=== PATIENT | male | born 1970 | race Caucasian/White ===

== ENCOUNTER 2021-03-28 09:46 | Emergency (ER) | payer BC, SELFPAY ==
[2021-03-28 09:53] VITALS: BP 148/79; PULSE 71; RESP 16; TEMP 37.2; O2SAT 99
--- NOTE | 2021-03-28 10:00 | ED.SKABFB ---
HPI - Skin/Abscess/Foreign Bdy General Chief complaint: Wound/Laceration Stated complaint: dog bite on ear Time Seen by Provider: 03/28/21 10:00 Source: patient and RN notes reviewed History of Present Illness HPI narrative: Patient is a 50-year-old male who presents the urgent care with complaints of a dog bite to the left ear. Patient states that he had to put his beagle down yesterday due to cancer and every time he would touch a certain spot on his back he would lash out and bite due to pain. The vehicle was 9 years old. States that he was up-to-date on shots. Patient states that the ear has increased in swelling and pain since yesterday. No other acute complaints. No acute distress noted. Patient aware of the plan of care. Some parts of this dictation were generated by voice recognition software and may contain typographical and/or grammatical inaccuracies. Related Data Home Medications Medication Instructions Recorded Confirmed No Home Medications 03/28/21 03/28/21 Allergies Allergy/AdvReac Type Severity Reaction Status Date / Time No Known Allergies Allergy Unverified 08/18/13 18:24 Review of Systems Review of Systems: CONSTITUTIONAL: Denies fever, chills, or sweats. EYES: Denies visual changes, redness, or discharge. ENT: Denies rhinorrhea, congestion, sore throat, or otalgia. CARDIOVASCULAR: Denies chest pain, palpitations, or edema. RESPIRATORY: Denies cough or dyspnea. GASTROINTESTINAL: Denies abdominal pain, nausea, vomiting, or diarrhea. GENITOURINARY: Denies dysuria or hematuria. SKIN: Reports of swelling, pain to the left ear due to a dog bite MUSCULOSKELETAL: Denies back pain, joint pain, or myalgia. NEUROLOGIC: Denies headache, numbness, or weakness. All other systems reviewed are negative, except as documented in HPI. PMFSH Comments At the time of my signature, I reviewed and agree with the nursing past medical, surgical, social, and family history. There is no relevant family history pertinent to the patient complaint. Exam Narrative: GENERAL: This is a well-nourished, well-developed patient, in no apparent distress. HEAD: normocephalic, atraumatic. EYES: PERRL. Sclera clear/white. Vision is grossly intact. EARS: Mild to moderate erythema/edema to the external left ear with 4 superficial punctures and linear close laceration. Right external ear normal, auditory canals clear and without drainage. Hearing grossly intact. NOSE: External nose normal with no obvious nasal discharge, nares without redness, no rhinorrhea. THROAT: Mucous membranes moist NECK: Neck supple CARDIOVASCULAR: Regular rate and rhythm without murmurs, gallops, or rubs. SKIN: warm, intact with no suspicious lesions or rash, good texture and turgor. NEURO: awake, alert, and oriented to person, place and time. There were no obvious focal neurologic abnormalities. EXTREMITIES: No clubbing, cyanosis, or edema. Course Course Level of Care: Express Care Visit Vital Signs Vital signs: Vital Signs Temperature 98.9 F 03/28/21 09:53 Pulse Rate 71 03/28/21 09:53 Respiratory Rate 16 03/28/21 09:53 Blood Pressure 148/79 H 03/28/21 09:53 Pulse Oximetry 99 03/28/21 09:53 Temperature 98.9 F 03/28/21 10:05 Pulse Rate 71 03/28/21 10:05 Respiratory Rate 16 03/28/21 10:05 Blood Pressure 148/79 H 03/28/21 10:05 Pulse Oximetry 99 03/28/21 10:05 Reviewed-patient is informed that they may have pre-hypertension or hypertension based on a blood pressure reading in the department. I recommend the patient call the primary care provider listed on their discharge instructions or a physician of their choice this week to arrange follow-up for further evaluation of possible pre-hypertension or hypertension. MDM - Skin/Abscess/Foreign Bdy MDM Narrative Medical decision making narrative: Advised patient complete the oral antibiotic regimen as prescribed. May use cool compress/ice to the ear for comfort. Use Tylenol/i
[2021-03-28 10:05] VITALS: BP 148/79; PULSE 71; RESP 16; TEMP 37.2; O2SAT 99
== END 2021-03-28 10:15 | disposition home or self-care (01) ==
PROVIDERS: Emergency Provider Nurse Practitioner Family
DX: S01.332A Puncture wound without foreign body of left ear, initial encounter (principal); W54.0XXA Bitten by dog, initial encounter; M19.90 Unspecified osteoarthritis, unspecified site; Z96.641 Presence of right artificial hip joint
CPT/HCPCS: 99203; G0463